=== PATIENT | female | born 1945 | race Two or more races ===

== ENCOUNTER 2024-03-26 20:53 | Emergency (ER) | payer MEDICARE, OTHER ==
[~2024-03-26] VITALS: Ht 167.6 cm; Wt 70.3 kg
[2024-03-26 21:00] VITALS: BP 162/72; TEMP 97.6; O2SAT 98
[2024-03-26] MEDS ORDERED: DIATR MEGLU/DIATRIZOATE SODIUM 30 ML BOTTLE (GASTROGRAPHIN) ONE (21:10)
== END 2024-03-26 21:43 | disposition home or self-care (01) ==
LOC: ER 20:55
DX: K94.23 Gastrostomy malfunction (principal); F03.90 Unspecified dementia, unspecified severity, without behavioral disturbance, psychotic disturbance, mood disturbance, and anxiety
CPT/HCPCS: 99284; 43762; 74018; Q9963

== ENCOUNTER 2024-03-28 14:36 | Emergency (ER) | payer MEDICARE, OTHER ==
[~2024-03-28] VITALS: Ht 167.6 cm; Wt 70.3 kg
[2024-03-28] MEDS ORDERED: DIATR MEGLU/DIATRIZOATE SODIUM 30 ML BOTTLE (GASTROGRAPHIN) ONE (15:04)
[2024-03-28] MEDS: DIATR MEGLU/DIATRIZOATE SODIUM 30 ML BOTTLE (GASTROGRAPHIN) PO ONE (15:22)
[2024-03-28 16:47] VITALS: BP 131/79; TEMP 98; O2SAT 100
== END 2024-03-28 16:48 | disposition home or self-care (01) ==
LOC: ER 14:40
DX: K94.23 Gastrostomy malfunction (principal); I10 Essential (primary) hypertension; F03.90 Unspecified dementia, unspecified severity, without behavioral disturbance, psychotic disturbance, mood disturbance, and anxiety; G93.49 Other encephalopathy; Z86.73 Personal history of transient ischemic attack (TIA), and cerebral infarction without residual deficits
CPT/HCPCS: 99284; 43762; 74018; Q9963 ×2

== ENCOUNTER → 2024-04-26 | Emergency (ER) | payer MEDICARE, OTHER ==
[~2024-04-26] VITALS: Ht 165.1 cm; Wt 51.7 kg
[~2024-04-26] MED LIST: DIATR MEGLU/DIATRIZOATE SODIUM 30 ML BOTTLE (GASTROGRAPHIN) ONE
[2024-04-26] MEDS: DIATR MEGLU/DIATRIZOATE SODIUM 30 ML BOTTLE (GASTROGRAPHIN) PO ONE (16:15)
[2024-04-26 17:21] VITALS: BP 145/70; TEMP 97.6; O2SAT 99
== END ==
LOC: ER 15:57
DX: K94.20 Gastrostomy complication, unspecified (principal); E11.9 Type 2 diabetes mellitus without complications; F03.90 Unspecified dementia, unspecified severity, without behavioral disturbance, psychotic disturbance, mood disturbance, and anxiety; Z86.018 Personal history of other benign neoplasm; Z87.440 Personal history of urinary (tract) infections; Z87.09 Personal history of other diseases of the respiratory system; Z87.19 Personal history of other diseases of the digestive system; Z87.39 Personal history of other diseases of the musculoskeletal system and connective tissue; Z87.2 Personal history of diseases of the skin and subcutaneous tissue
CPT/HCPCS: 99284; 43762; 74018; Q9963 ×2